=== PATIENT | male | born 1990 ===

== ENCOUNTER 2018-01-23 12:15 | Emergency (ER) | payer SELFPAY ==
[2018-01-23 12:31] VITALS: RESP 16; O2SAT 98
--- NOTE | 2018-01-23 12:50 | C.PDOC ---
History Of Present Illness 27 yr old male w/ hx of K2 abuse presents BIBA for substance abuse. Pt was noticed to be hallucinating by bystanders. Pt notes that he used K2 today and that he had hallucinations as a result of the K2 he used. He notes smoking it. He denies any falls, trauma, headache, neck stiffness, fever, chills or night sweats. No chest pain or sob. No abdominal pain. No constipation or diarrhea. No Urinary complaints. No other complaints. Time Seen by Provider: 01/23/18 12:43 Chief Complaint (Nursing): Psychiatric Evaluation History Per: Patient, EMS Past Medical History Vital Signs: Last Vital Signs Temp 98.4 F 01/23/18 12:30 Pulse 104 H 01/23/18 12:30 Resp 16 01/23/18 12:30 BP 107/78 01/23/18 12:30 Pulse Ox 98 01/23/18 13:45 - Medical History PMH: Schizophrenia Family History: States: Unknown Family Hx - Social History Hx Alcohol Use: No Hx Substance Use: No Review Of Systems Constitutional: Negative for: Fever, Chills, Sweats Eyes: Negative for: Pain, Vision Change ENT: Negative for: Ear Pain, Ear Discharge, Nose Pain Cardiovascular: Negative for: Chest Pain, Palpitations, Orthopnea Respiratory: Negative for: Cough, Shortness of Breath Gastrointestinal: Negative for: Nausea, Vomiting Genitourinary: Negative for: Dysuria, Frequency Musculoskeletal: Negative for: Neck Pain, Shoulder Pain, Back Pain, Hand Pain, Foot Pain Skin: Negative for: Rash Neurological: Negative for: Weakness, Numbness, Incoordination, Change in Speech , Confusion, Seizures, Altered Mental Status, Headache, Dizziness Psych: Negative for: Anxiety, Depression, Psychosis, Suicidal ideation Physical Exam - Physical Exam Appears: Well, Non-toxic Skin: Normal Color, Warm, Dry Head: Atraumatic, Normacephalic Eye(s): bilateral: Normal Inspection, PERRL, EOMI Nose: Normal Oral Mucosa: Moist Throat: Normal Neck: Normal Chest: Symmetrical, No Deformity Cardiovascular: Rhythm Regular Respiratory: Normal Breath Sounds, No Decreased Breath Sounds, No Accessory Muscle Use, No Stridor, No Wheezing Gastrointestinal/Abdominal: Normal Exam Back: Normal Inspection Extremity: Normal ROM Neurological/Psych: Oriented x3, Normal Speech, Normal Cognition, Normal Cranial Nerves, No Cerebellar Signs, Normal Motor, Normal Sensation Gait: Steady ED Course And Treatment - Laboratory Results Result Diagrams: 01/23/18 14:16 01/23/18 14:16 O2 Sat by Pulse Oximetry: 98 Medical Decision Making Medical Decision Makin yr old male w/ hx of schizophrenia presents BIBA EMS for hallucinations. Pt denies any current hallucinations and states he got high off of K2. HE denies any fever, headache, chills or night sweats. No meningeal signs. Normal neuro exam. Normal affect, no SI, Hi Or depression. WEll appearing in NAD with VSS. Will send for labs and eval by CRISIS. PEnding labs and CRISIS [id number] repeat neuro exam unchanged, steady gait w/ normal neuro exam labs unremarkable medically clear Clear per crisis will d/c home and reccomend to stop K2 Disposition - Disposition Disposition Time: 14:56 Condition: GOOD Forms: [employer] (Turkmen) - Clinical Impression Clinical Impression: Substance abuse
[2018-01-23 14:21] LABS: URINE BILIRUBIN NEGATIVE (NEGATIVE); URINE BLOOD NEGATIVE (NEGATIVE); URINE CLARITY Clear (Clear); URINE COLOR Yellow (YELLOW); URINE GLUCOSE (UA) NORMAL (Normal); URINE LEUKOCYTE ESTERASE NEG Leu/uL (Negative); URINE PROTEIN NEGATIVE (NEGATIVE); URINE UROBILINOGEN NORMAL mg/dL (0.2-1.0)
[2018-01-23 14:22] LABS: BASO # 0.1 K/uL (0.0-0.2); BASO % 0.9 % (0.0-2.0); EOS # 0.2 K/uL (0.0-0.7); EOS % 2.4 % (0.0-4.0); HEMOGLOBIN 12.1 g/dL (12.0-18.0); MEAN CELL VOLUME 92.6 fL (80.0-94.0); MEAN CORPUSCULAR HEMOGLOBIN 32.6 pg (27.0-31.0); MEAN CORPUSCULAR HGB CONC 35.2 g/dL (33.0-37.0); MEAN PLATELET VOLUME 6.2 fL (7.2-11.7); MONO # 0.9 K/uL (0.0-0.8); MONO % 10.2 % (0.0-10.0); NEUT # 5.2 K/uL (1.8-7.0); NEUT % 62.5 % (50.0-75.0); RBC 3.7 Mil/uL (4.40-5.90); RED CELL DISTRIBUTION WIDTH 13.6 % (11.5-14.5); WHITE BLOOD COUNT 8.3 K/uL (4.8-10.8)
[2018-01-23 14:32] LABS: ALB/GLOB RATIO 1.2 (1.0-2.1); ALBUMIN 2.9 g/dL (3.5-5.0); ALT/SGPT 52 U/L (21-72); AST/SGOT 27 U/L (17-59); BLOOD UREA NITROGEN 9 mg/dL (9-20); CALCIUM 8.3 mg/dl (8.6-10.4); GFR NON-AFRICAN AMERICAN > 60
[2018-01-23 14:40] LABS: BARBITURATES, UR NEGATIVE (NEGATIVE); BENZODIAZEPINES, UR NEGATIVE (NEGATIVE); OPIATES, UR NEGATIVE (NEGATIVE)
[2018-01-23 14:50] LABS: PHENCYCLIDINE, UR NEGATIVE (NEGATIVE)
[2018-01-23 15:56] VITALS: BP 119/73; PULSE 90; TEMP 98.9
== END 2018-01-23 15:56 | disposition home or self-care (01) ==
LOC: C.ER 12:15
DX: F19.10 Other psychoactive substance abuse, uncomplicated (principal)
CPT/HCPCS: 80053; 81001; 85025; 99284; G0480